=== PATIENT | male | born 1975 | race Caucasian/White ===

== ENCOUNTER 2016-07-22 15:07 | Emergency (ER) | payer MEDICAID ==
[~2016-07-22 15:07] MED LIST: LISINOPRIL10 M1 PO; NORCO 10/325 MG1 TAB PO; TRAMADOL50 MG PO
--- NOTE | 2016-07-22 16:18 | NUR ---
NO ANSWER OUT IN ER LOBBY
--- NOTE | 2016-07-22 16:27 | NUR ---
PATIENT CALLED FROM LOBBY FOR SECOND TIME NO ANSWER PATIENT IS LWBS.
== END 2016-07-22 16:27 | disposition left against medical advice (07) ==
LOC: MED 15:07
DX: R09.81 Nasal congestion (principal); Z53.21 Procedure and treatment not carried out due to patient leaving prior to being seen by health care provider

== ENCOUNTER 2016-08-25 17:03 | Emergency (ER) | payer MEDICAID ==
[~2016-08-25] VITALS: Ht 185.4 cm; Wt 125.6 kg
[2016-08-25 19:05] VITALS: BP 150/89
--- NOTE | 2016-08-25 19:55 | NUR ---
TO ER OF3
--- NOTE | 2016-08-25 20:00 | NUR ---
Patient being evaluated by physician.
[2016-08-25] MEDS ORDERED: KETOROLAC 60 MG/2 ML VIAL IM ONE (20:10)
[2016-08-25 21:50] VITALS: BP 149/90
--- NOTE | 2016-08-25 21:50 | NUR ---
Patient discharged with v/s stable. Written and verbal after care instructions given and explained. Patient alert, oriented and verbalized understanding of instructions. Ambulatory with steady gait. All questions addressed prior to discharge. ID band removed. Patient advised to follow up with PMD. Rx of TRAMADOL HCL given. Patient educated on indication of medication including possible reaction and side effects. Opportunity to ask questions provided and answered.
== END 2016-08-25 21:50 | disposition home or self-care (01) ==
LOC: MED 17:03
DX: M54.5 Low back pain (principal); J45.909 Unspecified asthma, uncomplicated; E11.9 Type 2 diabetes mellitus without complications; I10 Essential (primary) hypertension
CPT/HCPCS: 72080; 72100; 96372; 99284; J1885

== ENCOUNTER 2016-09-29 10:40 | Emergency (ER) | payer MEDICAID ==
[~2016-09-29] VITALS: Ht 185.4 cm; Wt 125.6 kg
[~2016-09-29 10:40] MED LIST changes: +LISI10TA11 PO; -LISINOPRIL10 M1 PO; -NORCO 10/325 MG1 TAB PO; -TRAMADOL50 MG PO
[2016-09-29 11:00] VITALS: BP 140/104
--- NOTE | 2016-09-29 12:37 | NUR ---
PT AMBULATED TO ER BED 08.
[2016-09-29] MEDS ORDERED: KETOROLAC 60 MG/2 ML VIAL IM ONE (12:40)
--- NOTE | 2016-09-29 12:45 | NUR ---
PATIENT PRESENTS TO ED WITH c/o mid back pain and neck pain s/p fall last night 10/10 sharp continuous, took tylenol can't remember the strengt; DENIES N/V/D; SKIN IS PINK/WARM/DRY; AAOX4 WITH EVEN AND STEADY GAIT; LUNGS CLEAR BL; HR EVEN AND REGULAR; PT DENIES ANY FEVER, CP, SOB, OR COUGH AT THIS TIME; PATIENT STATES PAIN OF 10/10 AT THIS TIME; VSS; PATIENT POSITIONED FOR COMFORT; HOB ELEVATED; BEDRAILS UP X2; BED DOWN.
[2016-09-29 13:07] VITALS: BP 138/96
== END 2016-09-29 13:08 | disposition home or self-care (01) ==
LOC: MED 10:40
DX: S13.4XXA Sprain of ligaments of cervical spine, initial encounter (principal); G89.29 Other chronic pain; M54.6 Pain in thoracic spine; J45.909 Unspecified asthma, uncomplicated; E11.9 Type 2 diabetes mellitus without complications; I10 Essential (primary) hypertension; W01.0XXA Fall on same level from slipping, tripping and stumbling without subsequent striking against object, initial encounter; Y93.89 Activity, other specified; Y92.89 Other specified places as the place of occurrence of the external cause; Y99.8 Other external cause status
CPT/HCPCS: 72040; 72110; 96372; 99284; J1885; Q0092

== ENCOUNTER 2016-10-28 18:39 | Emergency (ER) | payer MEDICAID ==
[~2016-10-28] VITALS: Ht 185.4 cm; Wt 128.5 kg
[2016-10-28 18:52] VITALS: BP 157/69
--- NOTE | 2016-10-28 19:00 | NUR ---
41Y/M PT. PRESENTS TO ED FOR REQUESTING MED REFILL FOR CHRONIC BACK PAIN. TRAMADOL 50MG PO Q4H. CHRONIC BACK PAIN, ASTHMA, HTN, HYPERLIPIDEMIA. AAO X4, AMBULATORY WITH STEADY GAIT. C/O LOWER BACK PAIN 06/14. VSS, NO S/SX OF DISTRESS AT THIS TIME.
--- NOTE | 2016-10-28 19:00 | NUR ---
PT TAKEN TO OF
--- NOTE | 2016-10-28 19:07 | NUR ---
Dr. Aguilar evaluating patient
--- NOTE | 2016-10-28 19:15 | NUR ---
Patient discharged with v/s stable. Written and verbal after care instructions given and explained. Patient alert, oriented and verbalized understanding of instructions. Ambulatory with steady gait. All questions addressed prior to discharge. ID band removed. Patient advised to follow up with PMD. Rx of TRAMADOL 50 MG given. Patient educated on indication of medication including possible reaction and side effects. Opportunity to ask questions provided and answered.
[2016-10-28 19:44] VITALS: BP 157/69
== END 2016-10-28 19:15 | disposition home or self-care (01) ==
LOC: MED 18:39
DX: Z76.0 Encounter for issue of repeat prescription (principal); G89.29 Other chronic pain; M54.5 Low back pain; J45.909 Unspecified asthma, uncomplicated; E11.9 Type 2 diabetes mellitus without complications; I10 Essential (primary) hypertension
CPT/HCPCS: 99283

== ENCOUNTER 2016-12-01 12:34 | Emergency (ER) | payer MEDICAID ==
[~2016-12-01] VITALS: Ht 185.4 cm; Wt 127.5 kg
[2016-12-01 12:40] VITALS: BP 162/102
[2016-12-01] MEDS ORDERED: LORA-476 PO (12:44)
--- NOTE | 2016-12-01 12:44 | NUR ---
Patient ambulated to bed 5. RN evaluating patient at bedside.
--- NOTE | 2016-12-01 12:45 | NUR ---
41/M BIB BROTHER C/O BACK PAIN X 3 DAYS & RAN OUT OF MED FOR HTN, ASTHMA & AN MEDS X 3DAYS. DENIES N/V/D; SKIN IS PINK/WARM/DRY; AAOX4 WITH EVEN AND STEADY GAIT; LUNGS CLEAR BL; HR EVEN AND REGULAR; PT DENIES ANY FEVER, CP, SOB, OR COUGH AT THIS TIME; PATIENT STATES PAIN OF 8 /10 AT THIS TIME; PATIENT POSITIONED FOR COMFORT; HOB ELEVATED; BEDRAILS UP X2; BED DOWN. ER MD MADE AWARE OF PT STATUS.
--- NOTE | 2016-12-01 12:46 | NUR ---
PT STS :I DON'T WANT PAIN MED AT THIS TIME.
--- NOTE | 2016-12-01 12:55 | NUR ---
Patient being evaluated by DR CASTANON at bedside. Addendum: 12/01/16 at 1305 by [email or web address] PT TOOK PAIN MED AT HOME 1 HR BEFORE CAME TO ER.
--- NOTE | 2016-12-01 13:02 | NUR ---
Patient discharged with BP 155/102; DENIES HEADACHE OR DIZZINESS AT THIS TIME. MD AWARE. Written and verbal after care instructions given and explained. Patient alert, oriented and verbalized understanding of instructions. Ambulatory with steady gait. All questions addressed prior to discharge. ID band removed. Patient advised to follow up with PMD. Rx of LORAZEPAM,TRAMADOL & ALBUTEROL given. Patient educated on indication of medication including possible reaction and side effects. Opportunity to ask questions provided and answered.
[2016-12-01 13:05] VITALS: BP 155/102
== END 2016-12-01 13:02 | disposition home or self-care (01) ==
LOC: MED 12:34
DX: Z76.0 Encounter for issue of repeat prescription (principal); J45.909 Unspecified asthma, uncomplicated; I10 Essential (primary) hypertension; F41.9 Anxiety disorder, unspecified
CPT/HCPCS: 99283

== ENCOUNTER 2016-12-13 14:00 | Emergency (ER) | payer MEDICAID ==
[~2016-12-13] VITALS: Ht 185.4 cm; Wt 123.0 kg
[~2016-12-13 14:00] MED LIST changes: +LORA-476 PO
[2016-12-13 14:12] VITALS: BP 133/76
--- NOTE | 2016-12-13 14:55 | NUR ---
AMBULATED TO ER OF2
[2016-12-13] MEDS ORDERED: LORazepam 1 MG TAB PO ONE (15:00)
--- NOTE | 2016-12-13 15:05 | NUR ---
DR. CANNON EVALUATING PATIENT
--- NOTE | 2016-12-13 15:35 | NUR ---
PATIENT VERY CALM.DENIES DISCOMFORT
--- NOTE | 2016-12-13 15:44 | NUR ---
Patient discharged with v/s stable. Written and verbal after care instructions given and explained. Patient verbalized understanding. Ambulatory with steady gait. All questions addressed prior to discharge. Advised to follow up with PMD.
[2016-12-13 15:45] VITALS: BP 132/87
== END 2016-12-13 15:45 | disposition home or self-care (01) ==
LOC: MED 14:00
DX: F41.9 Anxiety disorder, unspecified (principal); J45.909 Unspecified asthma, uncomplicated; I10 Essential (primary) hypertension; F20.9 Schizophrenia, unspecified; Z79.899 Other long term (current) drug therapy
CPT/HCPCS: 99284